=== PATIENT | female | born 2000 | race Caucasian/White ===

== ENCOUNTER → 2021-01-15 | Outpatient (CLI) | payer BC ==
--- NOTE | 2021-01-15 11:18 | RAD ---
EXAM: Lumbar spine, 3 views; pelvis and bilateral hips, 5 views HISTORY: Pain. COMPARISON: None. FINDINGS: Lumbar spine: 3 views of the lumbar spine are obtained. There is no listhesis. The vertebral bodies a re normal in height and the disc spaces are preserved. Pelvis and lateral hips: A frontal view the pelvis and frontal and frog-leg views of both hips are ob tained. There is no fracture, dislocation or subluxation. IMPRESSION: No acute osseous finding. Electronically signed by: Sirisha Moses MD (01/15/2021 11:16 AM) [id number]
== END ==
LOC: RAD 10:53
PROVIDERS: ATTEND Physician Assistant Medical
DX: M54.5 Low back pain (principal); M25.551 Pain in right hip; M25.552 Pain in left hip
CPT/HCPCS: 72100; 73521

== ENCOUNTER 2021-05-04 20:36 | Emergency (ER) | payer BC, OTHER ==
[~2021-05-04] VITALS: Ht 157.5 cm; Wt 75.8 kg
[2021-05-04] MEDS ORDERED: FAMOTIDINE 20 MG/2 ML VIAL IVP ONE (21:00)
[2021-05-04] MEDS ORDERED: IV RINGERS SOLUTION,LACTATED 1,000 ML IV SCH (21:00)
[2021-05-04] MEDS ORDERED: ONDANSETRON PF 4 MG/2 ML VIAL. IVP ONE (21:00)
--- NOTE | 2021-05-04 21:00 | PHYS DOC ---
Past History Past Medical History: Kidney Stones General Adult EDM: Chief Complaint: ABDOMINAL PAIN HPI: HPI: ".. I am having some bad abdomen pain.. ".. " Been having it all day... " .. Here in lower.. 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 Patient poorly has had normal stools. No history of trauma. No history of trauma outside cancer area. No history of bad food intake. No history of fever or chills. Patient has not had COVID vaccination and currently refuses to get it.. No history immunosuppression. Normally healthy. Normally follows with Jose for care. Review of Systems: Review of Systems: Constitutional: Denies fever or chills Eyes: Denies change in visual acuity HENT: Denies nasal congestion or sore throat Respiratory: Denies cough or shortness of breath Cardiovascular: Denies chest pain or edema GI: Hx.of lower and mid abdominal pain, nausea,. Denies vomiting, bloody stools or diarrhea : Denies dysuria Musculoskeletal: Denies back pain or joint pain Integument: Denies rash Neurologic: Denies headache, focal weakness or sensory changes Endocrine: Denies polyuria or polydipsia Lymphatic: Denies swollen glands Psychiatric: Denies depression or anxiety Family History: Family History: Noncontributory presentation Current Medications: Current Meds: See nursing for home meds Allergies: Allergies: Allergies Coded Allergies Type Severity Reaction Last Updated Verified No Known Drug Allergies 05/04/21 No Physical Exam: PE: Constitutional: Well developed, well nourished, moderate acute distress, non- toxic appearance. Red hair HENT: Normocephalic, atraumatic, bilateral external ears normal, oropharynx moist, no oral exudates, nose normal. [] Eyes: PERRLA, EOMI, conjunctiva normal, no discharge. [] Neck: Normal range of motion, no tenderness, supple, no stridor. [] Cardiovascular:Heart rate regular rhythm, no murmur [] Lungs & Thorax: Bilateral breath sounds equal apex auscultation [] Abdomen: Bowel sounds decreased, soft, mid and lower left tenderness, no masses, no pulsatile masses. Mild psoas sign on left.. Rebound to the left Lt. flank pain with percussion. Skin: Warm, dry, no erythema, no rash. [] Back: No tenderness, Lt. CVA tenderness. [] Extremities: No tenderness, no cyanosis, no clubbing, ROM intact, no edema. No cording appreciated Neurologic: Alert and oriented X 3, normal motor function, normal sensory function, no focal deficits noted. [] Psychologic: Affect anxious, judgement normal, mood normal. [] EKG: EKG: [] Radiology/Procedures: Radiology/Procedures: [][address] [address] IMAGING REPORT Signed PATIENT: IBIS CROWLEY AACCOUNT: [id number] : 2000 LOCATION: ER AGE: 20 SEX: F EXAM STATUS: REG ER ORD. PHYSICIAN: NESTOR ALEGRIA MD REASON: Flank pain, hematuria PROCEDURE: CT ABDOMEN PELVIS WO CONTRAST CT abdomen and pelvis without contrast: Reason for examination: Flank pain and hematuria. Helical images were obtained through the abdomen and pelvis with no intravenous or oral contrast administered. Reconstruction was performed in sagittal and coronal planes Exposure: One or more of the following individualized dose reduction techniques were utilized for this examination: 1. Automated exposure control 2. Adjustment of the mA and/or kV according to patient size 3. Use of iterative reconstruction technique. The lung bases are clear. The heart size is normal with no pericardial effusion. No abnormality seen at the liver, spleen, adrenal glands, pancreas or gallbladd er. The abdominal aorta and inferior vena cava show no acute abnormalities. The colon shows no diverticulosis, diverticulitis or colitis. No abnormality seen at the appendix. The small intestinal tract shows no abnormal dilatation, wall thickening or obstruction. No abnormality seen at the stomach or duodenum. The right kidney shows a nonobstructing calculus at the lower pole but there is no hydronephrosis or obstructive uropathy seen. The left kidney shows a mild hydronephrosis which appears to be due to a 2.3 mm calculus in the proximal left ureter. No abnormality seen at the bladder, uterus or ovaries. There is a small amount of fluid in the right adnexa which could be physiologic. No acute bony abnormalities are seen. IMPRESSION: 2.3 mm calculus in the proximal left ureter causing mild obstructive uropathy. Nonobstructing calculus at the lower pole the right kidney. Small amount of free fluid in the right adnexa which could be physiologic. Electronically signed by: Catrachita Manzanares MD (05/05/2021 12:45 AM) [facility] DICTATED AND SIGNED BY: CATRACHITA MANZANARES MD DATE: 05/05/21 0039 CC: NESTOR ALEGRIA MD; EDY CARMONA ~MTH0 0 [facility] [address] [place] [address] IMAGING REPORT Signed PATIENT: IBIS CROWLEY AACCOUNT: [id number] : 2000 LOCATION: ER AGE: 20 SEX: F EXAM STATUS: REG ER ORD. PHYSICIAN: NESTOR ALEGRIA MD REASON: Lower abdominal pain PROCEDURE: ACUTE ABDOMEN SERIES Exam: Acute abdominal series INDICATION: Lower abdominal pain TECHNIQUE: Frontal view of the chest with upright and supine views of the abdomen Comparisons: None FINDINGS: The cardiomediastinal silhouette and pulmonary vessels are within normal limits. The lung and pleural spaces are clear. Air and stool are noted throughout the colon to level the rectum in a no nobstructive bowel gas pattern. No suspicious masses or calcifications. Visual is osseous structures are unremarkable. IMPRESSION: 1. No acute cardiopulmonary process. 2. Nonobstructive bowel gas pattern. Electronically signed by: Carey Vela MD (05/04/2021 10:25 PM) [facility] DICTATED AND SIGNED BY: CAREY VELA MD DATE: 05/04/215 CC: NESTOR ALEGRIA MD; EDY CARMONA ~MTH0 0 Heart Score: C/O Chest Pain: N/A Risk Factors: Risk Factors: DM, Current or recent (<one month) smoker, HTN, HLP, family history of CAD, obesity. Risk Scores: Score 0 - 3: 2.5% MACE over next 6 weeks - Discharge Home Score 4 - 6: 20.3% MACE over next 6 weeks - Admit for Clinical Observation Score 7 - 10: 72.7% MACE over next 6 weeks - Early Invasive Strategies Course & Med Decision Making: Course & Med Decision Making Pertinent Labs and Imaging studies reviewed. (See chart for details) Push fluids. Take Tylenol and ibuprofen for pain. Follow-up primary care. Have them review ED record. Marked pain may take Vicoprofen up to 3 times a day. Take Zofran for nausea and vomiting. Take Flomax 0.4 mg daily. Save stone if passed. Follow-up with urology. Impression: 1. Abdomen pain 2. Hematuria 3. Proximal Lt. Kidney stone with hydronephrosis Stone is 2.3 cm Alma Disclaimer: Dragon Disclaimer: This electronic medical record was generated, in whole or in part, using a voice recognition dictation system. Departure Departure: Referrals: EDY CARMONA (PCP) Scripts Tamsulosin Hcl (FLOMAX) 0.4 Mg Cap.er.24h 0.4 MG PO DAILY for renal colic, #30 CAP.SR Prov: NESTOR ALEGRIA MD 05/05/21 Hydrocodone/Ibuprofen (HYDROCODONE-IBUPROFEN 7.5-200 ) 1 Each Tablet 1 TAB PO PRN Q6HRS PRN for PAIN, #30 TAB 0 Refills Prov: NESTOR ALEGRIA MD 05/05/21 Ondansetron Hcl (ZOFRAN) 4 Mg Tablet 8 MG PO QIDPRN PRN for NAUSEA/VOMITING, #30 TAB Prov: NESTOR ALEGRIA MD 05/05/21 Dragon Disclaimer This chart was dictated in whole or in part using Voice Recognition software in a busy, high-work load, and often noisy Emergency Department environment. It may contain unintended and wholly unrecognized errors or omissions. Dragon Disclaimer This chart was dictated in whole or in part using Voice Recognition software in a busy, high-work load, and often noisy Emergency Department environment. It may contain unintended and wholly unrecognized errors or omissions. NESTOR ALEGRIA MD May 04, 2021 21:00
[2021-05-04 21:39] LABS: BASO % 0 % (0-3); EOS # 0.1 x10^3/uL (0.0-0.7); EOS % 1 % (0-3); HEMATOCRIT 40.8 % (36.0-47.0); HEMOGLOBIN 13.7 g/dL (12.0-15.5); LYMPH # 2.9 x10^3/uL (1.0-4.8); LYMPH % 31 % (24-48); MEAN CORPUSCULAR HEMOGLOBIN 31 pg (25-35); MEAN CORPUSCULAR HGB CONC 34 g/dL (31-37); MEAN CORPUSCULAR VOLUME 93 fL (79-100); MONO # 0.6 x10^3/uL (0.0-1.1); MONO % 6 % (0-9); NEUT # 5.7 x10^3uL (1.8-7.7); NEUT % 62 % (31-73); PLATELET COUNT 269 x10^3/uL (140-400); RED CELL DISTRIBUTION WIDTH 12.4 % (11.5-14.5); WHITE BLOOD COUNT 9.2 x10^3/uL (4.0-11.0)
[2021-05-04 21:47] LABS: CALCIUM 8.9 mg/dL (8.5-10.1); CREATININE 0.9 mg/dL (0.6-1.0); POTASSIUM 3.6 mmol/L (3.5-5.1)
[2021-05-04 21:47] LABS: BARBITURATES NEG (NEG); BENZODIAZEPINES NEG (NEG); CANNABINOIDS NEG (NEG); COCAINE NEG (NEG); METHADONE NEG (NEG); OPIATES NEG (NEG); PHENCYCLIDINE NEG (NEG)
[2021-05-04 21:52] LABS: AMPHETAMINE/METHAMPHETAMINE NEG (NEG)
[2021-05-04 21:53] LABS: ALBUMIN 3.8 g/dL (3.4-5.0); DIRECT BILIRUBIN 0.1 mg/dL (0.0-0.2); TOTAL BILIRUBIN 0.2 mg/dL (0.2-1.0); TOTAL PROTEIN 7.1 g/dL (6.4-8.2)
[2021-05-04 22:20] LABS: BACTERIA,URINE FEW /HPF (0-FEW); BILIRUBIN,URINE NEG (NEG); CLARITY,URINE CLOUDY; COLOR,URINE YELLOW; GLUCOSE,URINE NEG (NEG); NITRITE,URINE NEG (NEG); SQUAMOUS EPITHELIAL CELL,UR FEW /LPF
[2021-05-04 22:21] LABS: AMORPHOUS SEDIMENT,UR PRESENT /HPF
--- NOTE | 2021-05-04 22:28 | RAD ---
Exam: Acute abdominal series INDICATION: Lower abdominal pain TECHNIQUE: Frontal view of the chest with upright and supine views of the abdomen Comparisons: None FINDINGS: The cardiomediastinal silhouette and pulmonary vessels are within normal limits. The lung and pleural spaces are clear. Air and stool are noted throughout the colon to level the rectum in a nonobstructive bowel gas patter n. No suspicious masses or calcifications. Visual is osseous structures are unremarkable. IMPRESSION: 1. No acute cardiopulmonary process. 2. Nonobstructive bowel gas pattern. Electronically signed by: Carey Clark MD (05/04/2021 10:25 PM) SIVAKUMAR
[2021-05-05] MEDS ORDERED: KETOROLAC 30 MG/ML VIAL. ONE (00:15)
[2021-05-05] MEDS ORDERED: KETOROLAC 30 MG/ML VIAL. IVP ONE (00:15)
--- NOTE | 2021-05-05 00:48 | RAD ---
CT abdomen and pelvis without contrast: Reason for examination: Flank pain and hematuria. Helical images were obtained through the abdomen and pelvis with no intravenous or oral contrast admi nistered. Reconstruction was performed in sagittal and coronal planes Exposure: One or more of the following individualized dose reduction techniques were utilized for thi s examination: 1. Automated exposure control 2. Adjustment of the mA and/or kV according to patient size 3. Use of iterative reconstruction technique. The lung bases are clear. The heart size is normal with no pericardial effusion. No abnormality seen at the liver, spleen, adrenal glands, pancreas or gallbladder. The abdominal aort a and inferior vena cava show no acute abnormalities. The colon shows no diverticulosis, diverticulit is or colitis. No abnormality seen at the appendix. The small intestinal tract shows no abnormal dila tation, wall thickening or obstruction. No abnormality seen at the stomach or duodenum. The right kid eyal shows a nonobstructing calculus at the lower pole but there is no hydronephrosis or obstructive u ropathy seen. The left kidney shows a mild hydronephrosis which appears to be due to a 2.3 mm calculu s in the proximal left ureter. No abnormality seen at the bladder, uterus or ovaries. There is a small amount of fluid in the right adnexa which could be physiologic. No acute bony abnormalities are seen. IMPRESSION: 2.3 mm calculus in the proximal left ureter causing mild obstructive uropathy. Nonobstructing calculus at the lower pole the right kidney. Small amount of free fluid in the right adnexa which could be physiologic. Electronically signed by: Sherry Gallego MD (05/05/2021 12:45 AM) GERARDO
[2021-05-05 01:16] VITALS: BP 117/53
[2021-05-05] MEDS ORDERED: HYDR-1179 PO (01:22)
[2021-05-05] MEDS ORDERED: ONDA4TAB7 PO (01:22)
[2021-05-05] MEDS ORDERED: ONDANSETRON PF 4 MG/2 ML VIAL. IVP ONE (01:30)
[2021-05-05] MEDS ORDERED: TAMSULOSIN 0.4 MG CAP.ER.24H. PO ONE (01:30)
[2021-05-05] MEDS ORDERED: TAMS0.4C97 PO (01:57)
== END 2021-05-05 02:00 | disposition home or self-care (01) ==
LOC: ER 20:36
DX: N13.2 Hydronephrosis with renal and ureteral calculous obstruction (principal)
CPT/HCPCS: 36415; 74022; 74176; 80048; 80076; 80307; 81001; 83690; 84702; 85025; 96361; 96374; 96375; 96376; 99285; J1885; J2405; J3490; J7120

== ENCOUNTER 2021-05-07 08:41 | Emergency (ER) | payer BC ==
[~2021-05-07] VITALS: Ht 157.5 cm; Wt 75.8 kg
[~2021-05-07 08:41] MED LIST: HYDR-1179 PO; ONDA4TAB7 PO; TAMS0.4C97 PO
--- NOTE | 2021-05-07 09:25 | PHYS DOC ---
Past History Past Medical History: Kidney Stones Additional Past Medical Histor: insomnia Past Surgical History: Other Additional Past Surgical Histo: WISDOM TEETH Alcohol Use: Occasionally General Adult EDM: Chief Complaint: ABDOMINAL PAIN HPI: HPI: Patient is a 20-year-old female coming in for epigastric abdominal pain that woke her from sleep at 4 AM. Patient she took a hydrocodone that she had from her previous visit for kidney stone. Says the pain returned at 7 AM. Patient was seen here 3 days ago and diagnosed with a kidney stone that she has since pa ssed. Patient that she has had some nausea but no vomiting. Had a normal bowel movement yesterday evening. Patient states that since taking the Flomax she has been urinating more frequently and drinking more water. Denies any fevers, chills, diarrhea. Denies any abdominal surgical history. Is not vaccinated against COVID-19. Ate Simpson's just prior to ED arrival Review of Systems: Review of Systems: All other systems within normal limits except for as noted in the HPI Allergies: Allergies: Allergies Coded Allergies Type Severity Reaction Last Updated Verified No Known Drug Allergies 05/04/21 No Physical Exam: PE: Constitutional: Well developed, well nourished, no acute distress, non-toxic appearance. [] HENT: Normocephalic, atraumatic, bilateral external ears normal, nose normal. [] Eyes: PERRLA, conjunctiva normal, no discharge. [] Neck: No rigidity, supple, no stridor. [] Cardiovascular: Regular rate and rhythm, brisk cap refill [] Lungs & Thorax: Non labored symmetric respirations, no tachypnea or respiratory distress [] Abdomen: Soft, nondistended, tenderness palpation in epigastric. Skin: Warm, dry, no erythema, no rash. [] Back: Unremarkable Extremities: No deformities, range of motion grossly intact, no lower extremity edema [] Neurologic: Alert and oriented X 3, no focal deficits noted. [] Psychologic: Affect normal, judgement normal, mood normal. [] Current Patient Data: Vital Signs: Vital Signs Date Time Temp Pulse Resp B/P (MAP) Pulse Ox O2 Delivery O2 Flow Rate FiO2 05/07/21 08:51 97.5 75 18 125/50 99 Room Air EKG: EKG: [] Radiology/Procedures: Radiology/Procedures: [][address] [address] IMAGING REPORT Signed PATIENT: IBIS CROWLEY AACCOUNT: [id number] : 2000 LOCATION: ER AGE: 20 SEX: F EXAM STATUS: REG ER ORD. PHYSICIAN: FRANKO ZUNIGA MD REASON: epigastric pain PROCEDURE: ACUTE ABDOMEN SERIES Exam Date: 05/07/2021 9:29 AM XR ABDOMEN COMP ACUTE Indication: Reason: epigastric pain / Spl. Instructions: / History: . COMPARISON: May 04, 2021 FINDINGS/ IMPRESSION: CHEST: The cardiac silhouette, pulmonary vasculature and lung prieto are within normal limits. The osseous structures are intact. ABDOMEN AND PELVIS: There is a non-dilated, non-obstructed bowel gas pattern. Air and fecal matter is seen within the colon. The visualized osseous structures are intact. Electronically signed by: Abran Villalobos MD (05/07/2021 9:42 AM) [facility] DICTATED AND SIGNED BY: ABRAN VILLALOBOS MD DATE: 05/07/21 0941 CC: FRANKO ZUNIGA MD; EDY CARMONA ~MTH0 0 Heart Score: C/O Chest Pain: No Risk Factors: Risk Factors: DM, Current or recent (<one month) smoker, HTN, HLP, family history of CAD, obesity. Risk Scores: Score 0 - 3: 2.5% MACE over next 6 weeks - Discharge Home Score 4 - 6: 20.3% MACE over next 6 weeks - Admit for Clinical Observation Score 7 - 10: 72.7% MACE over next 6 weeks - Early Invasive Strategies Course & Med Decision Making: Course & Med Decision Making Pain almost completely relieved with GI cocktail Dragon Disclaimer: Alma Disclaimer: This electronic medical record was generated, in whole or in part, using a voice recognition dictation system. Departure Departure: Impression: Primary Impression: Epigastric abdominal pain Disposition: HOME / SELF CARE / HOMELESS Condition: STABLE Referrals: EDY CARMONA (PCP) Patient Instructions: Diet for Gastroesophageal Reflux Disease, Adult Scripts Pantoprazole Sodium (PANTOPRAZOLE SODIUM) 40 Mg Tablet.dr 1 TAB PO DAILY for antacid, #30 TAB 3 Refills Prov: FRANKO ZUNIGA MD 05/07/21 Sucralfate (CARAFATE) 1 Gm Tablet 1 TAB PO QID for gastritis for 10 Days, #40 TAB 0 Refills Prov: FRANKO ZUNIGA MD 05/07/21 FRANKO ZUNIGA MD May 07, 2021 09:25
[2021-05-07] MEDS: LIDO:MAALOX 1:1 20 ML SINGLE DOSE. PO ONE (09:37)
--- NOTE | 2021-05-07 09:44 | RAD ---
Exam Date: 05/07/2021 9:29 AM XR ABDOMEN COMP ACUTE Indication: Reason: epigastric pain / Spl. Instructions: / History: . COMPARISON: May 04, 2021 FINDINGS/ IMPRESSION: CHEST: The cardiac silhouette, pulmonary vasculature and lung prieto are within normal limits. The osseous structures are intact. ABDOMEN AND PELVIS: There is a non-dilated, non-obstructed bowel gas pattern. Air and fecal matter is seen within the co larry. The visualized osseous structures are intact. Electronically signed by: Coleman Villalobos MD (05/07/2021 9:42 AM) [facility]
[2021-05-07 10:07] LABS: BASO % 0 % (0-3); EOS # 0.1 x10^3/uL (0.0-0.7); EOS % 1 % (0-3); HEMOGLOBIN 13.2 g/dL (12.0-15.5); LYMPH # 2.2 x10^3/uL (1.0-4.8); LYMPH % 32 % (24-48); MEAN CORPUSCULAR HEMOGLOBIN 31 pg (25-35); MEAN CORPUSCULAR HGB CONC 34 g/dL (31-37); MEAN CORPUSCULAR VOLUME 93 fL (79-100); MONO # 0.5 x10^3/uL (0.0-1.1); MONO % 7 % (0-9); NEUT # 4.2 x10^3uL (1.8-7.7); NEUT % 61 % (31-73); PLATELET COUNT 247 x10^3/uL (140-400); RED CELL DISTRIBUTION WIDTH 12.3 % (11.5-14.5); WHITE BLOOD COUNT 6.8 x10^3/uL (4.0-11.0)
[2021-05-07] MEDS ORDERED: PANT40TA6 PO (10:15)
[2021-05-07] MEDS ORDERED: SUCR1TAB35 PO (10:15)
[2021-05-07 10:19] LABS: CALCIUM 9.1 mg/dL (8.5-10.1); CREATININE 0.7 mg/dL (0.6-1.0); GFR 105.6; POTASSIUM 3.5 mmol/L (3.5-5.1)
[2021-05-07 10:25] LABS: ALBUMIN 3.8 g/dL (3.4-5.0); ALBUMIN/GLOBULIN RATIO 1.2 (1.0-1.7); TOTAL BILIRUBIN 0.3 mg/dL (0.2-1.0); TOTAL PROTEIN 7.1 g/dL (6.4-8.2)
[2021-05-07 11:55] VITALS: BP 116/61
[2021-05-07 12:10] LABS: BACTERIA,URINE MANY /HPF (0-FEW); BILIRUBIN,URINE NEG (NEG); CLARITY,URINE HAZY; COLOR,URINE YELLOW; GLUCOSE,URINE NEG (NEG); NITRITE,URINE NEG (NEG); RBC,URINE OCC /HPF (0-2); SQUAMOUS EPITHELIAL CELL,UR MANY /LPF; UROBILINOGEN,URINE 0.2 mg/dL (0.2 mg/dL)
== END 2021-05-07 12:01 | disposition home or self-care (01) ==
LOC: ER 08:41
DX: R10.13 Epigastric pain (principal); K21.9 Gastro-esophageal reflux disease without esophagitis; Z87.442 Personal history of urinary calculi
CPT/HCPCS: 36415; 74022; 80053; 81001; 81025; 83690; 85025; 87086; 99284-25